=== PATIENT | female | born 1965 | race Caucasian/White ===

== ENCOUNTER 2024-05-19 10:18 | Emergency (ER) | payer OTHER ==
[~2024-05-19] VITALS: Ht 165.1 cm; Wt 59.1 kg
[2024-05-19 10:41] VITALS: TEMP 98.2
[2024-05-19 15:10] VITALS: BP 137/78; PULSE 67
== END 2024-05-19 15:10 | disposition home or self-care (01) ==
LOC: COL.ER 10:18
DX: S81.811A Laceration without foreign body, right lower leg, initial encounter (principal); Z23 Encounter for immunization; V18.4XXA Pedal cycle driver injured in noncollision transport accident in traffic accident, initial encounter; Y93.55 Activity, bike riding; Y92.410 Unspecified street and highway as the place of occurrence of the external cause